=== PATIENT | female | born 1995 | race Caucasian/White ===

== ENCOUNTER → 2020-05-16 13:16 | Outpatient (CLI) | payer MEDICAID, SELFPAY ==
[2020-05-16 13:58] LABS: Absolute Lymphocyte Count 1.96 X10^3/uL (0.83-4.51); Absolute Neutrophil Count 7.1 X10^3/uL (2.0-7.7); Basophil# 0.06 X10^3/uL; Basophil% 0.6 % (0-1); Eosinophils% 2.9 % (0-5); Hematocrit 36.9 % (37-47); Hemoglobin 12.2 g/dL (12.0-15.0); Lymphocyte # 1.96 X10^3/ul (4.0); Lymphocyte % 19.2 % (19-41); Mean Corp Hgb Conc 33.1 g/dL (32-36); Mean Corpuscular Volume 93.7 fL (81-99); Mean Platelet Vol. 10.9 fl (6.2-12.0); Monocyte% 6.9 % (0-10); NRBC Flagged by Analyzer 0 % (0-5); Neutrophil # 7.13 X10^3/uL (2.7-7.7); Neutrophil % 69.9 % (47-70); Platelet Count 234 K/mm3 (150-450); RBC Distribution Width CV 13.1 % (11.6-14.6); RBC Distribution Width SD 44.7 fl (35.1-43.9); Red Blood Count 3.94 M/mm3 (4.2-5.4); White Blood Count 10.2 K/mm3 (4.4-11.0)
[2020-05-16 14:51] LABS: HIV - WCH Non-Reactive (Nonreactive); Hepatitis B Surface Antigen Non-Reactive (Nonreactive); Hepatitis C Antibody Non-Reactive (Nonreactive); Rubella IgG 202.8 IU/mL
[2020-05-20 13:05] LABS: HPV Reflexed? NOT INDICATED
[2020-05-21 03:06] LABS: Chlamydia By Nucleic Acid AMP Negative (Negative)
[2020-05-21 12:00] LABS: Gonococcus By Nucleic Acid AMP Negative (Negative)
[2020-05-23 01:11] LABS: Prenatal RPR NONREACTIVE (NONREACTIVE)
== END ==
PROVIDERS: Visit Provider Obstetrics & Gynecology
DX: Z34.81 Encounter for supervision of other normal pregnancy, first trimester (principal); Z11.3 Encounter for screening for infections with a predominantly sexual mode of transmission; Z12.4 Encounter for screening for malignant neoplasm of cervix
CPT/HCPCS: 85025; 86703; 86762; 86803; 87086; 87088; 87340; 87491; 87591; 88175; G0145

== ENCOUNTER → 2020-09-16 11:17 | Outpatient (CLI) | payer MEDICAID, SELFPAY ==
[2017-06-12 20:49] VITALS: BMI 27.6
[2020-09-16 13:28] LABS: Hematocrit 33.7 % (37-47); Hemoglobin 11.1 g/dL (12.0-15.0); Mean Corp Hgb Conc 32.9 g/dL (32-36); Mean Corpuscular Hgb 31.4 pg (27.0-32.0); Mean Corpuscular Volume 95.2 fL (81-99); Platelet Count 191 K/mm3 (150-450); RBC Distribution Width CV 12.8 % (11.6-14.6); RBC Distribution Width SD 44.7 fl (35.1-43.9); Red Blood Count 3.54 M/mm3 (4.2-5.4); White Blood Count 10.4 K/mm3 (4.4-11.0)
[2020-09-16 13:40] LABS: Glucose Challenge Gest 1H 50g 130 mg/dL (70-140)
== END ==
PROVIDERS: Visit Provider Obstetrics & Gynecology
DX: Z34.82 Encounter for supervision of other normal pregnancy, second trimester (principal)
CPT/HCPCS: 36415; 82950; 85027

== ENCOUNTER → 2020-12-19 10:57 | Outpatient (CLI) | payer MEDICAID, SELFPAY ==
[2017-06-12 20:49] VITALS: BMI 27.6
== END ==
PROVIDERS: Visit Provider Obstetrics & Gynecology
DX: Z36.85 Encounter for antenatal screening for Streptococcus B (principal)
CPT/HCPCS: 87081

== ENCOUNTER → 2020-12-25 12:32 | Outpatient (CLI) | payer MEDICAID, SELFPAY | PROVIDERS: Referring Provider Obstetrics & Gynecology; Visit Provider Obstetrics & Gynecology | DX: Z33.1 Pregnant state, incidental (principal) | CPT/HCPCS: 87635; C9803; U0005; U0003 ==

== ENCOUNTER 2020-12-26 09:40 | Inpatient (IN) | payer MEDICAID, SELFPAY ==
[2017-06-12 20:49] VITALS: BMI 27.6
[2020-12-26] VITALS (14 sets, daily range): BP systolic 101–119; BP diastolic 53–73; PULSE 68–97; RESP 14–18; TEMP 36.1–37.3; O2SAT 96–100; BMI 29.5
--- NOTE | 2020-12-26 09:52 | PCM.HP.BLA ---
History and Physical Date of Admission: 12/26/20 Chief complaint: Repeat section bilateral tubal ligation History of present illness: 25-year-old G2, P1 at 39 weeks and 2 days with LISA: 12/31/2020 by LMP arrives for repeat section bilateral tubal ligation. Denies headache, visual changes, chest pain, shortness of breath, nausea vomiting, right upper quadrant pain. Patient states good movement. is complicated by hypoplastic nasal bone NIPT negative seen by MFM Obstetric history: G1: 38-week primary section for nonreassuring heart tones 06/12/2017 male G2: Current Past medical history: Denies Medications: vitamin Past surgical history: section Allergies: No known drug allergies Social history: Half pack per day smoker, no use of alcohol or drugs Family history: Denies history DVT or PE Review of systems: Besides above pertinent positives a full review of systems was performed and found to be negative Physical exam: General: normal-appearing no acute distress HEENT: Normocephalic atraumatic no cervical lymphadenopathy Cardiac/respiratory: No use of accessory muscles, nonlabored breathing Abdomen: Soft, nontender, gravid Extremities: No peripheral edema normal peripheral pulses Psych: Normal affect normal demeanor nonpressured speech Labs: White blood cell count 11.3, hemoglobin 10.6, hematocrit 31.7%, platelets 196. Blood type A+ antibody negative. Assessment plan: 25-year-old at 39 weeks and 2 days for repeat section bilateral tubal ligation. -Admit labor and delivery -CEFM -2 g Ancef -Routine orders -Anesthesia to see
[2020-12-26] MEDS: Lactated Ringers 1,000 ML 999 ML IV (10:00)
[2020-12-26 10:32] LABS: Absolute Lymphocyte Count 1.18 X10^3/uL (0.83-4.51); Absolute Neutrophil Count 9.4 X10^3/uL (2.0-7.7); Basophil# 0.02 X10^3/uL; Basophil% 0.2 % (0-1); Eosinophils% 0.9 % (0-5); Hematocrit 31.7 % (37-47); Hemoglobin 10.6 g/dL (12.0-15.0); Lymphocyte # 1.18 X10^3/ul (0.83-4.51); Lymphocyte % 10.5 % (19-41); Mean Corp Hgb Conc 33.4 g/dL (32-36); Mean Corpuscular Hgb 30.9 pg (27.0-32.0); Mean Corpuscular Volume 92.4 fL (81-99); Mean Platelet Vol. 11.1 fl (6.2-12.0); Monocyte# 0.52 X10^3/uL; Monocyte% 4.6 % (0-10); NRBC Flagged by Analyzer 0 % (0-5); Neutrophil % 83.3 % (47-70); Platelet Count 196 K/mm3 (150-450); RBC Distribution Width CV 13.5 % (11.6-14.6); Red Blood Count 3.43 M/mm3 (4.2-5.4); White Blood Count 11.3 K/mm3 (4.4-11.0)
--- NOTE | 2020-12-26 10:40 | NURSING ---
98 f oral temp, 112/73 BP, 96 pulse, 97 pulse ox
[2020-12-26] MEDS: Acetaminophen 500 MG Tablet 1000 MG PO ×3 (11:00→23:42)
[2020-12-26] MEDS: Lactated Ringers 1,000 ML 150 ML IV (11:11)
[2020-12-26] MEDS: Sodium Citrate/Citric Acid 30 ML UDC PO (11:47)
[2020-12-26] MEDS: Cefazolin 2 GM in 0.9% Normal Saline 100 ML IV (11:59)
[2020-12-26] MEDS: Ondansetron 4 MG/2 ML Vial IV (12:01)
--- NOTE | 2020-12-26 12:57 | OP.PCM_ITS ---
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 Normal uterus, tubes, and ovaries Consent: Patient with history of section and desires permanent sterilization in need of repeat section and bilateral tubal ligation. Patient understands the risk of the procedure include but are not limited to visceral or vascular injury, prolonged hospitalization, blood loss and need for transfusion, reoperation. Patient states understanding wish to proceed. All questions were answered and consent was signed. Procedure: Patient brought back to the OR where spinal anesthesia found to be adequate. 2 g of Ancef were given for infection prophylaxis. Patient prepared and draped in a supine position with leftward tilt. A Pfannenstiel incision was made the skin with a scalpel. The incision was carried down the fascia with a scalpel. The fascia was excised and extended laterally. Inferior aspect of the fascia was grasped and the underlying rectus and pyramidalis muscle were dissected off sharply with Monae scissors. In a similar fashion superior aspect of the fascia was grasped and the underlying rectus muscle was dissected off sharply. Rectus muscle was dissected at the midline down to the level of the pubic symphysis. Preperitoneal fatty tissue was noted and peritoneum was entered bluntly. Peritoneum was extended superiorly and inferiorly with good visualization of bladder. Bladder blade was inserted and vesicouterine peritoneum was identified. Low transverse hysterotomy was made. Hand was placed into the incision gentle fundal pressure was applied once the head was brought to the incision and the bladder blade was removed. Head and shoulders were delivered with ease. Cord was cut and clamped. They was handed off to nursing. Placenta was delivered via cord traction and fundal massage. Uterus was exteriorized and wiped out with dry laparotomy sponges in order to remove remaining placental membranes. IV oxytocin was initiated to facilitate uterine contractions. Uterus was closed in continuous running fashion. Second layer was performed. Good hemostasis was noted. Right fallopian tube was identified to the fimbria and elevated with a [place]. Using a LigaSure device the mesosalpinx was cut and cauterized, fallopian tube amputated and sent to pathology. In a similar fashion the left fallopian tube was identified to the fimbria and elevated with a [place]. Using a LigaSure device the mesosalpinx was cut and cauterized, the fallopian tube was amputated and sent to pathology. Good hemostasis was noted at both sites. Uterus was placed back in the abdominal cavity and incision was reinspected and found to be hemostatic. Peritoneum was closed in continuous running fashion. Fascia was closed in continuous running fashion. Skin was closed in a subcuticular fashion. All counts correct x2. Patient tolerated procedure well was brought to recovery in stable condition.
[2020-12-26] MEDS: Oxytocin 30 units/NS 500 ml 30 UNITS/500 ML IV.SOLN 167 UNITS IV (13:25)
[2020-12-26] MEDS: Ketorolac 30 MG/ML Syringe IV ×2 (13:25→19:45)
--- NOTE | 2020-12-26 13:43 | FALS_PTH ---
PATIENT: YENI GOLDMAN LOC: [facility] U#:[id number] AGE/SX: 25/F ROOM: [facility] RE12/26/[address]: Dr. Steve Motta MD : 1995 BED: 1 DIS: 12/27/2020 SPEC #: [id number] RECD: 12/27/20 08:55 STATUS: MARIA E REMemo #: [id number] JERICA: 12/26/20 13:[address]: Steve Motta DEPT: SURGICAL PATHOLOGY RECD BY: Mihaela Bravo ENTERED: 12/27/20 08:55 SP TYPE: FALL TUBES OTHR DR: No Primary Care Phys Tissues: Fallopian tube Procedures: Surgery Specimen Level II HEADER OPERATION: Tubal ligation PRE-OP DIAGNOSIS: Sterilization TISSUE SUBMITTED: Fallopian tubes, suture in right tube MICROSCOPIC DIAGNOSIS Bilateral fallopian tubes, salpingectomy: Bilateral fallopian tubes, no pathologic diagnosis. MAYA:gopi 12/30/2020 MICROSCOPIC DESCRIPTION Slides are reviewed. GROSS DESCRIPTION Received in fixative is one container labeled with the patient's name and designated bilateral fallopian tubes, suture in right. The specimen consists of two fallopian tubes with an average length of 5 cm and has an average diameter of 0.6 cm. Both fallopian tubes have normal fimbriated ends. No mass lesions are identified. Director Public Service sections are submitted in two cassettes as follows: 1 - right fallopian tube, 2 - left fallopian tube. / AM:gopi 12/27/20 TC:4 CPT: 50295 x2
[2020-12-26 13:50] LABS: Pathology Specimen OB SEE PATHOLOGY REPORT
--- NOTE | 2020-12-26 15:02 | NURSING ---
Patient noted to have golf ball sized clot with fundal exam. Fundus midline, 3 below, firm with massage. Dr. Vitaly Motta's office called to ask about a Methergine order and to report clot, along with patient oozing a slow trickle.
[2020-12-26] MEDS: Methylergonovine 0.2 MG/ML Ampul IM (15:10)
--- NOTE | 2020-12-26 15:10 | NURSING ---
Received a call back from Dr. Vitaly Motta. Order to give Methergine IM.
[2020-12-26] MEDS: Lactated Ringers 1,000 ML 100 ML IV (17:36)
[2020-12-27] MEDS: Ketorolac 30 MG/ML Syringe IV ×2 (01:36→06:55)
[2020-12-27] MEDS: Enoxaparin 40 MG/0.4 ML Syringe SC (01:38)
[2020-12-27] MEDS: 0.9% Saline Lock 10 ML Syringe IV ×2 (01:39→06:56)
[2020-12-27 04:00] VITALS: BP 105/60; PULSE 75; RESP 18; TEMP 36.2; O2SAT 97
[2020-12-27] MEDS: Acetaminophen 500 MG Tablet 1000 MG PO ×2 (06:03→10:55)
[2020-12-27 06:33] LABS: Hematocrit 26.5 % (37-47); Hemoglobin 8.8 g/dL (12.0-15.0); Mean Corp Hgb Conc 33.2 g/dL (32-36); Mean Corpuscular Hgb 31.3 pg (27.0-32.0); Mean Corpuscular Volume 94.3 fL (81-99); Platelet Count 137 K/mm3 (150-450); RBC Distribution Width CV 13.5 % (11.6-14.6); RBC Distribution Width SD 46.8 fl (35.1-43.9); Red Blood Count 2.81 M/mm3 (4.2-5.4); White Blood Count 7.3 K/mm3 (4.4-11.0)
--- NOTE | 2020-12-27 06:44 | PCM.DC ---
Discharge Instructions Diet Discharge Diet: No restrictions Activity Discharge Activity: Return to Normal Activity, May Drive, May Shower and - (no tub baths for two weeks) May resume sexual activity in: 4-6 weeks Lifting Restrictions: no lifting over 25 pounds for 2 to 3 weeks Dressing / Incision Call your doctor if your incision/area has: Continuous Slow Oozing, Increased Pain/ Swelling and Foul Smelling Discharge Call your doctor if you observe: Fever of 101 or Higher, Shortness of breath and Chest pain Follow Up Care Please Follow Up With: Steve Motta MD When: 2 week postoperative, 4 to 6 weeks Test Results: Test results from this visit will be discussed in further detail at your follow-up appointment, if applicable. Discharge Plan Admission Admit Date/Time: 12/26/20 09:40 Attending Provider: Steve Motta Primary Care Provider: Care PhysicianEstelle Primary Discharge Orders/Prescriptions Prescriptions: New oxycodone 5 mg capsule 5 mg PO Q6H PRN (Reason: pain) 4 Days Qty: 16 RF: 0 No Action 1 mg Tablet 1 tab PO DAILY RF: 0 Referrals / Follow Up: Care Physician,No Primary [Primary Care Provider] - Disposition Discharge Orders: Discharge Patient (Routine); Ordered 12/27/20 Ordered By: Dr. Steve Motta
--- NOTE | 2020-12-27 06:45 | PCM.PN.OB ---
Subjective Subjective No overnight complaints. Pain well controlled. Objective Data Objective Data Vital Signs: Vital Signs Temp Pulse Resp BP Pulse Ox 97.1 F L 75 18 105/60 97 12/27/20 04:00 12/27/20 04:00 12/27/20 04:00 12/27/20 04:00 12/27/20 04:00 Oxygen Delivery Method Room Air Weight: 167 lb Body Mass Index (BMI) 29.5 Intake & Output: Intake and Output for Last 24 Hours 12/25/20 12/26/20 12/27/20 23:59 23:59 23:59 Intake Total 2820 / 2820 Output Total 885 / 885 900 / 900 Balance 1935 / 1935 -900 / -900 Lab / Micro Data Result Diagrams: 12/27/20 06:25 Labs: Laboratory Results - last 24 hr 12/26/20 12/26/20 12/27/20 10:00 10:00 06:25 WBC 11.3 H 7.3 RBC 3.43 L 2.81 L Hgb 10.6 L 8.8 L Hct 31.7 L 26.5 L MCV 92.4 94.3 MCH 30.9 31.3 MCHC 33.4 33.2 RDW Std Deviation 46.0 H 46.8 H RDW Coeff of Wendy 13.5 13.5 Plt Count 196 137 L MPV 11.1 11.0 Immature Gran % (Auto) 0.500 Neut % (Auto) 83.3 H Lymph % (Auto) 10.5 L [place] % (Auto) 4.6 Eos % (Auto) 0.9 Baso % (Auto) 0.2 Absolute Neuts (auto) 9.4 H Absolute Lymphs (auto) 1.18 Nucleated RBC % 0 Blood Type A POSITIVE Antibody Screen NEGATIVE Physical Exam Const alert, oriented x3 and no apparent distress HEENT normocephalic and moist oral mucous membranes Head and Scalp: atraumatic Neck full ROM and no lymphadenopathy Resp normal respiratory effort, no retractions and no use of accessory muscles GI normal to inspection, nondistended, normoactive bowel sounds GI Narrative: Bandage clean dry and intact Extremity normal to inspection, full ROM and no clubbing, cyanosis or edema Psych mental status grossly normal, affect normal, speech normal and activity/motor behavior normal Assessment & Plan (1) : PLAN: Postoperative day 1 status post repeat section and bilateral tubal ligation at term. Bottlefeeding. Pain well controlled. 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
[2020-12-27 08:55] VITALS: BP 104/61; PULSE 78; RESP 18; TEMP 37.2; O2SAT 98
[2020-12-27] MEDS: Senna/Docusate Sodium 1 Tablet PO (10:55)
[2020-12-27 11:00] VITALS: BP 108/66; PULSE 76; RESP 16; TEMP 37.1
--- NOTE | 2020-12-27 13:50 | NURSING ---
Reviewed and agree with BRAYDEN student charting. -OTILIO Young instructor
[2020-12-27] MEDS: oxyCODONE 5 MG Tablet PO (13:53)
[2020-12-27 15:06] VITALS: BP 121/76; PULSE 100; RESP 16; TEMP 36.7; O2SAT 99
== END 2020-12-27 16:35 | disposition home or self-care (01) | DRG 539 ==
PROVIDERS: Admitting Provider Obstetrics & Gynecology; Referring Provider Obstetrics & Gynecology; Visit Provider Obstetrics & Gynecology
PROC: 10D00Z1 Extraction of Products of Conception, Low, Open Approach (ICD-10-PCS; CPT 59514; principal; 2020-12-26 11:45)
DX: O65.5 Obstructed labor due to abnormality of maternal pelvic organs (principal); O34.211 Maternal care for low transverse scar from previous cesarean delivery; Z3A.39 39 weeks gestation of pregnancy; Z37.0 Single live birth; F17.210 Nicotine dependence, cigarettes, uncomplicated; O99.334 Smoking (tobacco) complicating childbirth; Z30.2 Encounter for sterilization
CPT/HCPCS: 85025; 85027; 86850; 86900; 86901; 87635; 88302; 99218; C9803; J7120; U0005; A4216; G0378; J2405; U0003